=== PATIENT | male | born 1985 | race Caucasian/White ===

== ENCOUNTER 2019-12-04 17:01 | Inpatient (IN) | payer OTHER ==
[2019-12-04 18:03] VITALS: BMI 22.8
--- NOTE | 2019-12-04 18:06 | HP ---
COWS - Scale Resting Pulse: 1= [place] 81-100 Sweatin= No chills or Flushing Restless Observation: 3= Extraneous Movement Pupil Size: 0= Normal to Room Light Bone or Joint Aches: 1= Mild Discomfort Runny Nose/ Eye Tearin= Runny Nose/Eyes GI Upset > 30mins: 1= Stomach Cramp Tremor Observation: 0= None Yawning Observation: 1= 1-2x During Session Anxiety or Irritability: 1=Feels Anxious/Irritable Goose Flesh Skin: 0=Smooth Skin COWS Score: 10 CIWA Score - Admission Criteria OASAS Guidelines: Admission for Medically Managed Detox: Requires at least one of the followin. CIWA greater than 12 2. Seizures within the past 24 hours 3. Delirium tremens within the past 24 hours 4. Hallucinations within the past 24 hours 5. Acute intervention needed for co occurring medical disorder 6. Acute intervention needed for co occurring psychiatric disorder 7. Severe withdrawal that cannot be handled at a lower level of care (continued vomiting, continued diarrhea, abnormal vital signs) requiring intravenous medication and/or fluids 8. Admission ROS S - HPI Allergies/Adverse Reactions: Allergies Allergy/AdvReac Type Severity Reaction Status Date / Time shellfish derived Allergy Verified 12/04/19 18:05 History of Present Illness: 34 y.o. male requesting detox from heroin use, rpeorts first age of use 20 , longest sobriety 4 years [id number] while in residential programand then NA , relapsed , current use 7-8 bags daily , OD in the past , IV use in [facility] - denies program participation , claims last Monday he bought illicit Methadone 70 mg fentanyl - denies benzo - denies use denies other illicits or etoh tobacco : 03/23 ppd PMHX : asthma, hep C s/p tx 2016 Ribovirin PSHx : R hand Vth MC frx , left IVth finger frx s/p slip and fall PSych : bipolar II dx age 17 , depression, anxiety not on psych meds x 5 years , denies current SI / HI Exam Limitations: No Limitations - Review of Systems Constitutional: No Symptoms Reported EENT: reports: Nose Congestion, Other (myopia) Respiratory: reports: No Symptoms reported Cardiac: reports: No Symptoms Reported GI: reports: See HPI, Constipated, Abdominal cramping : reports: No Symptoms Reported Musculoskeletal: reports: Muscle Pain Integumentary: reports: See HPI Neuro: reports: No Symptoms reported Endocrine: reports: No Symptoms Reported Hematology: reports: No Symptoms Reported Psychiatric: reports: Agitated, Anxious, Disorientated Patient History - Smoking Cessation Smoking history: Current every day smoker Have you smoked in the past 12 months: Yes Initiated information on smoking cessation: Yes 'Breaking Loose' booklet given: 12/04/19 - Substances abused Heroin Substance route: Inhalation Frequency: Daily Amount used: 8 bags Age of first use: 20 Date of last use: 12/04/19 Admission Physical Exam BHS - Vital Signs Vital Signs: Vital Signs - 24 hr 12/04/19 17:56 Temperature 97.2 F L Pulse Rate 100 H Respiratory 20 Rate Blood Pressure 120/75 - Physical General Appearance: Yes: Moderate Distress, Anxious HEENTM: Yes: EOMI, Hearing grossly Normal, Normocephalic, Normal Voice, Nasal Congestion Respiratory: Yes: Chest Non-Tender, Lungs Clear, Normal Breath Sounds, No Respiratory Distress, No Accessory Muscle Use Neck: Yes: No masses,lesions,Nodules, Trachea in good position Cardiology: Yes: Regular Rhythm, Regular Rate, S1, S2, Tachycardia Abdominal: Yes: Non Tender, Soft Back: Yes: Normal Inspection Musculoskeletal: Yes: Gait Steady Extremities: Yes: Non-Tender Neurological: Yes: Alert, Motor Strength 5/5, Normal Mood/Affect Integumentary: Yes: Warm, Track Weinstein (flo wrists) - Diagnostic (1) Opioid use disorder Current Visit: Yes Status: Chronic Breathalyzer - Breathalyzer Breathalyzer: 0 Urine Drug Screen - Results Drug screen NEGATIVE: No Urine drug screen results: FEN-Fentanyl, MOP-Opiates, MTD-Methadone, BZO- Benzodiazepines Inpatient Rehab Admission - Rehab Decision to Admit Inpatient rehab admission?: No
[2019-12-04] MEDS ORDERED: hydrOXYzine PAMOATE 25 MG CAPSULE (FP) PO PRN (18:19)
[2019-12-04] MEDS ORDERED: ACETAMINOPHEN 325 MG TABLET (FP) PO PRN ×2 (18:19)
[2019-12-04] MEDS ORDERED: MAGNESIUM HYDROX 2400MG/30ML ORAL SUSPENSION 30 ML CUP PO PRN (18:19)
[2019-12-04] MEDS ORDERED: MAGNESIUM CITRATE 300 ML BOTTLE PO PRN (18:19)
[2019-12-04] MEDS ORDERED: MENTHOL/PHENOL 1 EACH UD MM PRN (18:19)
[2019-12-04] MEDS ORDERED: NICOTINE POLACRILEX 2 MG GUM BUC PRN (18:19)
[2019-12-04] MEDS ORDERED: IBUPROFEN 400 MG TABLET (FP) PO PRN (18:19)
[2019-12-04] MEDS ORDERED: ONDANSETRON *ODT* 4 MG TABLET SL PRN (18:19)
[2019-12-04] MEDS ORDERED: METHOCARBAMOL 500 MG TABLET PO PRN (18:19)
[2019-12-04] MEDS ORDERED: BISMUTH SUBSALICYLATE 524 MG/30 ML UD PO PRN (18:19)
[2019-12-04] MEDS ORDERED: MAG HYDROX/AL HYDROX/SIMETH 30 ML UNIT-DOSE CUP PO PRN (18:19)
[2019-12-04] MEDS ORDERED: METHADONE HCL 5 MG TABLET (FOR DETOX USE ONLY) PO ONE (18:21)
[2019-12-04] MEDS: THIAMINE HCL 100 MG TABLET (FP) PO SCH (22:13)
[2019-12-04] MEDS: MELATONIN 5 MG TABLETS PO SCH (22:13)
--- NOTE | 2019-12-05 09:54 | EKG ---
Test Reason : Blood Pressure : / mmHG Vent. Rate : 061 BPM Atrial Rate : 061 BPM P-R Int : 134 ms QRS Dur : 082 ms QT Int : 398 ms P-R-T Axes : 056 015 017 degrees QTc Int : 400 ms NORMAL SINUS RHYTHM NORMAL ECG NO PREVIOUS ECGS AVAILABLE Confirmed by ELOISE ECHEVERRIA MD ([id number]) on 12/05/2019 9:53:51 AM Referred By: Confirmed By:ELOISE ECHEVERRIA MD
[2019-12-05] MEDS ORDERED: METHADONE HCL 10 MG TABLET (FOR DETOX USE ONLY) PO ONE (10:00)
--- NOTE | 2019-12-05 10:06 | CONSULT ---
[facility] Psychiatric Consult - Data Date of interview: 12/05/19 Admission source: Self-referred Identifying data: Mr Tay is a 34 years old male, father of a 13 years old daughter, homeless seeking detox treatment for opioid Substance Abuse History: Reports history of heroin use. Refer to addiction counselor's summary for further information Medical History: Significant for bronchial asthma, history of treatment for hepatitis C and orthosurgery for fractures(5th metatarcal right hand, 4th fingerleft hand). Smokes 5 cigarettes daily Psychiatric History: This is patient's first psychiatric admission to this facility. He reports that his first psychiaric contact occured at age 17 while in a residential treatment at [facility] in [place], [place]. He said that he was diagnoed with Bipolar II Disorder and started on Seroquel and Prozac. Reports that he has been receiving outpatient psychiatric treatment on & off since. Reports that he has not been in outpatient treament for the past 5 years and has been off medications for that time period as well. His most recent OPD care was at [facility] in [place], [place]. Denies previous psychiatric hospitalization or suicidal attempt. At present, denies experiencing psychotic, manic or depressive symptoms. However, reports feeling anxious and sleeping poorly Physical/Sexual Abuse/Trauma History: Denies history of abuse s a child or DV relationship Mental Status Exam - Mental Status Exam Alert and Oriented to: Time, Place, Person Cognitive Function: Fair Patient Appearance: Disheveled Mood: Anxious Affect: Appropriate Patient Behavior: Cooperative Speech Pattern: Clear Voice Loudness: Normal Thought Process: Intact, Goal Oriented Thought Disorder: Not Present Hallucinations: Denies Suicidal Ideation: Denies Homicidal Ideation: Denies Insight/Judgement: Poor Sleep: Poorly Appetite: Fair Muscle strength/Tone: Normal Gait/Station: Normal Psychiatric Findings - Problem List ([place] 1, 2,3) (1) Bipolar II disorder Current Visit: Yes Status: Chronic (2) Substance-induced anxiety disorder Current Visit: Yes Status: Acute (3) Substance-induced sleep disorder Current Visit: Yes Status: Acute (4) Uncomplicated opioid dependence Current Visit: Yes Status: Acute (5) Nicotine dependence Current Visit: Yes Status: Chronic (6) Bronchial asthma Current Visit: Yes Status: Chronic (7) Hepatitis C Current Visit: Yes Status: Resolved - Initial Treatment Plan Initial Treatment Plan: 1) Start Seroquel 100 mg po HS. 2) Continue inpatient detoxification
--- NOTE | 2019-12-05 10:19 | PN ---
BHS COWS - Scale Resting Pulse: 0= [place] 80 or Below Sweatin= Chills/Flushing Restless Observation: 1= Difficult to Sit Still Pupil Size: 0= Normal to Room Light Bone or Joint Aches: 1= Mild Discomfort Runny Nose/ Eye Tearin= Nasal Congestion GI Upset > 30mins: 0= None Tremor Observation of Outstretched Hands: 1= Tremor [place], Not Seen Yawning Observation: 1= 1-2x During Session Anxiety or Irritability: 1=Feels Anxious/Irritable Goose Flesh Skin: 0=Smooth Skin COWS Score: 7 BHS Progress Note (SOAP) Subjective: sweats chills interrupted sleep Objective: 12/05/19 10:19 Vital Signs Temperature 97.5 F L 12/05/19 08:12 Pulse Rate 70 12/05/19 08:12 Respiratory Rate 20 12/05/19 08:12 Blood Pressure 121/73 12/05/19 08:12 O2 Sat by Pulse Oximetry (%) 96 12/05/19 05:05 labs pending [id number] ambulating no acute distress Assessment: 12/05/19 10:19 withdrawals Plan: continue detox pending labs
[2019-12-05] MEDS: PRENATAL VITAMINS W/ FOLIC ACID TABLET (FP) PO SCH (10:42)
[2019-12-05 11:02] LABS: BLOOD UREA NITROGEN 13.2 mg/dL (7-18); CALCIUM 9.8 mg/dL (8.5-10.1); CREATININE 0.9 mg/dL (0.55-1.3); POTASSIUM 4.7 mmol/L (3.5-5.1); TOT PROT 8.3 g/dl (6.4-8.2)
[2019-12-05 11:09] LABS: HEMATOCRIT 43.4 % (35.4-49); HEMOGLOBIN 14.6 GM/dL (11.7-16.9); MCH 30.7 pg (25.7-33.7); MCHC 33.5 g/dl (32.0-35.9); MEAN CELL VOLUME 91.7 fl (80-96); MEAN PLT VOLUME 7.6 fl (7.5-11.1); PLATELET COUNT 228 K/MM3 (134-434); RBC 4.74 M/mm3 (4.00-5.60); RDW 12.8 % (11.9-15.9); WHITE BLOOD COUNT 3.3 K/mm3 (4.0-10.0)
[2019-12-05] MEDS: QUEtiapine FUMARATE 100 MG TABLET (FP) PO SCH (22:12)
[2019-12-05] MEDS: THIAMINE HCL 100 MG TABLET (FP) PO SCH (22:12)
[2019-12-05] MEDS: cloNIDine HCL 0.1 MG TABLET PO PRN (22:14)
[2019-12-05] MEDS: MELATONIN 5 MG TABLETS PO SCH (22:15)
[2019-12-06] MEDS ORDERED: METHADONE HCL 5 MG TABLET (FOR DETOX USE ONLY) PO ONE (10:00)
--- NOTE | 2019-12-06 10:01 | PN ---
S COWS - Scale Resting Pulse: 0= [place] 80 or Below Sweatin= No chills or Flushing Restless Observation: 0= Sits Still Pupil Size: 1= Pupils >than Normal Bone or Joint Aches: 1= Mild Discomfort Runny Nose/ Eye Tearin= Runny Nose/Eyes GI Upset > 30mins: 2= Nausea/Diarrhea Tremor Observation of Outstretched Hands: 2= Slight Tremor Visible Yawning Observation: 1= 1-2x During Session Anxiety or Irritability: 2=Irritable/Anxious Goose Flesh Skin: 0=Smooth Skin COWS Score: 11 [facility] Progress Note (SOAP) Subjective: alert,irritable,anxious,interrupted sleep,tremor,pain in the body and back,nausea Objective: 12/06/19 16:05 Vital Signs Temperature 99.1 F 12/06/19 12:51 Pulse Rate 83 12/06/19 12:51 Respiratory Rate 18 12/06/19 12:51 Blood Pressure 120/76 12/06/19 12:51 O2 Sat by Pulse Oximetry (%) 100 12/06/19 12:51 12/06/19 16:05 Laboratory Last Values WBC 3.3 K/mm3 (4.0-10.0) L 12/05/19 08:00 RBC 4.74 M/mm3 (4.00-5.60) 12/05/19 08:00 Hgb 14.6 GM/dL (11.7-16.9) 12/05/19 08:00 Hct 43.4 % (35.4-49) 12/05/19 08:00 MCV 91.7 fl (80-96) 12/05/19 08:00 MCH 30.7 pg (25.7-33.7) 12/05/19 08:00 MCHC 33.5 g/dl (32.0-35.9) 12/05/19 08:00 RDW 12.8 % (11.9-15.9) 12/05/19 08:00 Plt Count 228 K/MM3 (134-434) 12/05/19 08:00 MPV 7.6 fl (7.5-11.1) 12/05/19 08:00 Sodium 139 mmol/L (136-145) 12/05/19 08:00 Potassium 4.7 mmol/L (3.5-5.1) 12/05/19 08:00 Chloride 103 mmol/L (98-107) 12/05/19 08:00 Carbon Dioxide 31 mmol/L (21-32) 12/05/19 08:00 Anion Gap 5 MMOL/L (8-16) L 12/05/19 08:00 BUN 13.2 mg/dL (7-18) 12/05/19 08:00 Creatinine 0.9 mg/dL (0.55-1.3) 12/05/19 08:00 Est GFR (CKD-EPI)AfAm 130.52 12/05/19 08:00 Est GFR (CKD-EPI)NonAf 112.62 12/05/19 08:00 Random Glucose 96 mg/dL (74-106) 12/05/19 08:00 Calcium 9.8 mg/dL (8.5-10.1) 12/05/19 08:00 Total Bilirubin 1.0 mg/dL (0.2-1) 12/05/19 08:00 AST 23 U/L (15-37) 12/05/19 08:00 ALT 29 U/L (13-61) 12/05/19 08:00 Alkaline Phosphatase 75 U/L (45-117) 12/05/19 08:00 Total Protein 8.3 g/dl (6.4-8.2) H 12/05/19 08:00 Albumin 4.0 g/dl (3.4-5.0) 12/05/19 08:00 Syphilis Serology Non-reactive (NONREACTIVE) 12/05/19 08:00 COVID-19 (CLEM) Not detected (Not Detected) 12/04/19 19:00 Assessment: 12/06/19 16:06 withdrawal symptom Plan: continue detox methadone regimen,chest x ray done pending on report
[2019-12-06] MEDS: PRENATAL VITAMINS W/ FOLIC ACID TABLET (FP) PO SCH (10:24)
[2019-12-06] MEDS: cloNIDine HCL 0.1 MG TABLET PO PRN (22:19)
[2019-12-06] MEDS: MELATONIN 5 MG TABLETS PO SCH (22:19)
[2019-12-06] MEDS: THIAMINE HCL 100 MG TABLET (FP) PO SCH (22:19)
[2019-12-06] MEDS: QUEtiapine FUMARATE 100 MG TABLET (FP) PO SCH (22:19)
[2019-12-07] MEDS ORDERED: METHADONE HCL 10 MG TABLET (FOR DETOX USE ONLY) PO ONE (10:00)
[2019-12-07] MEDS: PRENATAL VITAMINS W/ FOLIC ACID TABLET (FP) PO SCH (10:11)
--- NOTE | 2019-12-07 14:09 | PN ---
BHS COWS - Scale Resting Pulse: 0= [place] 80 or Below Sweatin= No chills or Flushing Restless Observation: 0= Sits Still Pupil Size: 0= Normal to Room Light Bone or Joint Aches: 1= Mild Discomfort Runny Nose/ Eye Tearin= None GI Upset > 30mins: 0= None Tremor Observation of Outstretched Hands: 0= None Yawning Observation: 0= None Anxiety or Irritability: 1=Feels Anxious/Irritable Goose Flesh Skin: 0=Smooth Skin COWS Score: 2 BHS Progress Note (SOAP) Subjective: Complaints of mild anxiety and joint discomfort. Objective: 12/07/19 14:07 Vital Signs 12/07/19 12/07/19 09:15 12:20 Temperature 97.8 F 98.6 F Pulse Rate 52 L 74 Respiratory 19 16 Rate Blood Pressure 116/64 121/60 O2 Sat by Pulse 98 98 Oximetry (%) Laboratory Last Values WBC 3.3 K/mm3 (4.0-10.0) L 12/05/19 08:00 RBC 4.74 M/mm3 (4.00-5.60) 12/05/19 08:00 Hgb 14.6 GM/dL (11.7-16.9) 12/05/19 08:00 Hct 43.4 % (35.4-49) 12/05/19 08:00 MCV 91.7 fl (80-96) 12/05/19 08:00 MCH 30.7 pg (25.7-33.7) 12/05/19 08:00 MCHC 33.5 g/dl (32.0-35.9) 12/05/19 08:00 RDW 12.8 % (11.9-15.9) 12/05/19 08:00 Plt Count 228 K/MM3 (134-434) 12/05/19 08:00 MPV 7.6 fl (7.5-11.1) 12/05/19 08:00 Sodium 139 mmol/L (136-145) 12/05/19 08:00 Potassium 4.7 mmol/L (3.5-5.1) 12/05/19 08:00 Chloride 103 mmol/L (98-107) 12/05/19 08:00 Carbon Dioxide 31 mmol/L (21-32) 12/05/19 08:00 Anion Gap 5 MMOL/L (8-16) L 12/05/19 08:00 BUN 13.2 mg/dL (7-18) 12/05/19 08:00 Creatinine 0.9 mg/dL (0.55-1.3) 12/05/19 08:00 Est GFR (CKD-EPI)AfAm 130.52 12/05/19 08:00 Est GFR (CKD-EPI)NonAf 112.62 12/05/19 08:00 Random Glucose 96 mg/dL (74-106) 12/05/19 08:00 Calcium 9.8 mg/dL (8.5-10.1) 12/05/19 08:00 Total Bilirubin 1.0 mg/dL (0.2-1) 12/05/19 08:00 AST 23 U/L (15-37) 12/05/19 08:00 ALT 29 U/L (13-61) 12/05/19 08:00 Alkaline Phosphatase 75 U/L (45-117) 12/05/19 08:00 Total Protein 8.3 g/dl (6.4-8.2) H 12/05/19 08:00 Albumin 4.0 g/dl (3.4-5.0) 12/05/19 08:00 Syphilis Serology Non-reactive (NONREACTIVE) 12/05/19 08:00 COVID-19 (CLEM) Not detected (Not Detected) 12/04/19 19:00 Labs noted. Assessment: 12/07/19 14:07 Alert and oriented x 3, in no acute respiratory distress. Full ROM, ambulating in unit without assistance. Skin warm to touch without any lesions. Very mild withdrawal symptoms. Plan: Continue detox protocol. D/c in AM.
[2019-12-07] MEDS: QUEtiapine FUMARATE 100 MG TABLET (FP) PO SCH (22:36)
[2019-12-07] MEDS: THIAMINE HCL 100 MG TABLET (FP) PO SCH (22:36)
[2019-12-07] MEDS: MELATONIN 5 MG TABLETS PO SCH (22:36)
[2019-12-08] MEDS ORDERED: METHADONE HCL 5 MG TABLET (FOR DETOX USE ONLY) PO ONE (10:00)
[2019-12-08] MEDS: PRENATAL VITAMINS W/ FOLIC ACID TABLET (FP) PO SCH (10:14)
[2019-12-08 10:25] VITALS: BP 114/67; PULSE 74; TEMP 97.8
--- NOTE | 2019-12-08 11:54 | DS ---
[facility] Detox Discharge Summary Admission Date: 12/04/19 Discharge Date: 12/08/19 - History Present History: Opioid Dependence Additional Comments: Pt completed detox successfully and discharged safely in stable condition. Instructed to follow up with PCP within 1-2 weeks. Pertinent Past History: Asthma HCV - Physical Exam Results Vital Signs: Vital Signs Temperature 97.8 F 12/08/19 08:43 Pulse Rate 74 12/08/19 08:43 Respiratory Rate 16 12/08/19 08:43 Blood Pressure 114/67 12/08/19 08:43 O2 Sat by Pulse Oximetry (%) 99 12/08/19 08:43 Pertinent Admission Physical Exam Findings: Withdrawal sxs Laboratory Tests 12/04/19 12/05/19 12/05/19 19:00 08:00 08:00 WBC 3.3 L RBC 4.74 Hgb 14.6 Hct 43.4 MCV 91.7 MCH 30.7 MCHC 33.5 RDW 12.8 Plt Count 228 MPV 7.6 Sodium Potassium Chloride Carbon Dioxide Anion Gap BUN Creatinine Est GFR (CKD-EPI)AfAm Est GFR (CKD-EPI)NonAf Random Glucose Calcium Total Bilirubin AST ALT Alkaline Phosphatase Total Protein Albumin Syphilis Serology Non-reactive COVID-19 (CLEM) Not detected 12/05/19 08:00 WBC RBC Hgb Hct MCV MCH MCHC RDW Plt Count MPV Sodium 139 Potassium 4.7 Chloride 103 Carbon Dioxide 31 Anion Gap 5 L BUN 13.2 Creatinine 0.9 Est GFR (CKD-EPI)AfAm 130.52 Est GFR (CKD-EPI)NonAf 112.62 Random Glucose 96 Calcium 9.8 Total Bilirubin 1.0 AST 23 ALT 29 Alkaline Phosphatase 75 Total Protein 8.3 H Albumin 4.0 Syphilis Serology COVID-19 (CLEM) Labs reviewed - Treatment Hospital Course: Detox Protocol Followed, Detoxed Safely, Responded well, Discharged Condition Good - Diagnosis (1) Uncomplicated opioid dependence Current Visit: Yes Status: Acute (2) Bipolar II disorder Current Visit: Yes Status: Chronic (3) Bronchial asthma Current Visit: Yes Status: Chronic (4) Nicotine dependence Current Visit: Yes Status: Chronic (5) Hepatitis C Current Visit: Yes Status: Chronic - AMA Did Patient Leave Against Medical Advice: No (Instructed to follow up with PCP within 1-2 weeks)
== END 2019-12-08 12:45 | disposition home or self-care (01) | DRG 773 ==
LOC: YASAS 17:01 → Y6N 18:49
PROVIDERS: ADMIT Allergy & Immunology; ATTEND Allergy & Immunology
PROC: HZ2ZZZZ Detoxification Services for Substance Abuse Treatment (ICD-10-PCS; principal; 2019-12-04)
DX: F11.23 Opioid dependence with withdrawal (principal); F17.210 Nicotine dependence, cigarettes, uncomplicated; F31.81 Bipolar II disorder; F19.282 Other psychoactive substance dependence with psychoactive substance-induced sleep disorder; F19.280 Other psychoactive substance dependence with psychoactive substance-induced anxiety disorder; J45.909 Unspecified asthma, uncomplicated; Z86.19 Personal history of other infectious and parasitic diseases; Z87.81 Personal history of (healed) traumatic fracture; Z59.0 Homelessness; Z91.013 Allergy to seafood
CPT/HCPCS: 36415; 71046-TC-FY; 80053; 85027; 86780; 93005; 93010; J0735; U0003

== ENCOUNTER 2021-10-05 12:58 | Inpatient (IN) | payer OTHER ==
[2021-10-05 14:39] VITALS: BMI 21.2
[2021-10-05] MEDS ORDERED: BISMUTH SUBSALICYLATE 524 MG/30 ML PO PRN (15:30)
[2021-10-05] MEDS ORDERED: DICYCLOMINE HCL 10 MG CAPSULE PO PRN (15:30)
[2021-10-05] MEDS ORDERED: LOPERAMIDE HCL 2 MG CAPSULE PO PRN (15:30)
[2021-10-05] MEDS ORDERED: ACETAMINOPHEN 325 MG TABLET (FP) PO PRN ×2 (15:30)
[2021-10-05] MEDS ORDERED: MAG HYDROX/AL HYDROX/SIMETH 30 ML UNIT-DOSE CUP PO PRN (15:30)
[2021-10-05] MEDS ORDERED: methaDONE HCL 10 MG TABLET (FOR DETOX USE ONLY) PO ONE (15:30)
[2021-10-05] MEDS ORDERED: diazePAM 5 MG TABLET PO PRN (15:30)
[2021-10-05] MEDS ORDERED: METHOCARBAMOL 500 MG TABLET PO PRN (15:30)
[2021-10-05] MEDS ORDERED: BENZOCAINE/MENTHOL (CHLORASEPTIC ) LOZENGE MM PRN (15:30)
[2021-10-05] MEDS ORDERED: IBUPROFEN 600 MG TABLET (FP) PO PRN (15:30)
[2021-10-05] MEDS ORDERED: MAGNESIUM CITRATE 300 ML BOTTLE PO PRN (15:30)
[2021-10-05] MEDS ORDERED: MAGNESIUM HYDROX 2400MG/30ML ORAL SUSPENSION 30 ML CUP PO PRN (15:30)
[2021-10-05] MEDS ORDERED: NICOTINE 10 MG CARTRIDGE (INHALER) IH PRN (15:30)
[2021-10-05] MEDS ORDERED: IBUPROFEN 400 MG TABLET (FP) PO PRN (15:30)
[2021-10-05] MEDS ORDERED: cloNIDine HCL 0.1 MG TABLET PO PRN (15:30)
[2021-10-05] MEDS ORDERED: ONDANSETRON *ODT* 4 MG TABLET SL PRN (15:30)
[2021-10-05] MEDS: diazePAM 5 MG TABLET PO SCH ×2 (17:44→22:23)
[2021-10-05] MEDS: hydrOXYzine PAMOATE 25 MG CAPSULE (FP) PO SCH ×2 (17:44→22:23)
[2021-10-05] MEDS ORDERED: MELATONIN 5 MG TABLETS PO SCH (22:00)
[2021-10-05] MEDS ORDERED: THIAMINE HCL 100 MG TABLET (FP) PO SCH (22:00)
[2021-10-06] MEDS: diazePAM 5 MG TABLET PO SCH (05:26)
[2021-10-06] MEDS: hydrOXYzine PAMOATE 25 MG CAPSULE (FP) PO SCH (05:26)
[2021-10-06 06:47] VITALS: BP 140/100; PULSE 83; TEMP 97.7
[2021-10-06] MEDS ORDERED: PRENATAL VITAMINS W/ FOLIC ACID TABLET (FP) PO SCH (10:00)
[2021-10-06] MEDS ORDERED: NICOTINE 7 MG/24 HOURS TOPICAL PATCH TD SCH (10:00)
[2021-10-07] MEDS ORDERED: diazePAM 5 MG TABLET PO SCH (06:00)
[2021-10-07] MEDS ORDERED: methaDONE HCL 10 MG TABLET (FOR DETOX USE ONLY) PO ONE (10:00)
[2021-10-08] MEDS ORDERED: diazePAM 5 MG TABLET PO SCH (06:00)
[2021-10-09] MEDS ORDERED: diazePAM 5 MG TABLET PO ONE (06:00)
[2021-10-09] MEDS ORDERED: methaDONE HCL 10 MG TABLET (FOR DETOX USE ONLY) PO ONE (10:00)
== END 2021-10-06 07:39 | disposition left against medical advice (07) | DRG 770 ==
LOC: YASAS 12:58 → Y3N 15:39
PROVIDERS: ADMIT Allergy & Immunology; ATTEND Surgery
PROC: HZ2ZZZZ Detoxification Services for Substance Abuse Treatment (ICD-10-PCS; principal; 2021-10-05)
DX: F11.23 Opioid dependence with withdrawal (principal); F13.20 Sedative, hypnotic or anxiolytic dependence, uncomplicated; F17.210 Nicotine dependence, cigarettes, uncomplicated; F19.280 Other psychoactive substance dependence with psychoactive substance-induced anxiety disorder; F31.81 Bipolar II disorder; F41.9 Anxiety disorder, unspecified; J45.909 Unspecified asthma, uncomplicated; Z86.19 Personal history of other infectious and parasitic diseases
CPT/HCPCS: C9803-CS; J0735; U0003; U0005

== ENCOUNTER 2022-06-24 12:46 | Inpatient (IN) | payer OTHER ==
[2022-06-24 13:50] VITALS: BMI 23.1
[2022-06-24] MEDS ORDERED: ALBUTEROL SO4 HFA INHALER IH PRN (14:23)
[2022-06-24] MEDS ORDERED: ACETAMINOPHEN 325 MG TABLET (FP) PO PRN (14:27)
[2022-06-24] MEDS ORDERED: MAGNESIUM HYDROX 2400MG/30ML ORAL SUSPENSION 30 ML CUP PO PRN (14:27)
[2022-06-24] MEDS ORDERED: METHOCARBAMOL 500 MG TABLET PO PRN (14:27)
[2022-06-24] MEDS ORDERED: POLYETHYLENE GLYCOL (HEALTHYLAX) 3350 17 GM PACKET PO PRN (14:27)
[2022-06-24] MEDS ORDERED: LOPERAMIDE HCL 2 MG CAPSULE PO PRN (14:27)
[2022-06-24] MEDS ORDERED: BENZONATATE 200 MG CAPSULE PO PRN (14:27)
[2022-06-24] MEDS ORDERED: NICOTINE 10 MG CARTRIDGE (INHALER) IH PRN (14:27)
[2022-06-24] MEDS ORDERED: hydrOXYzine PAMOATE 25 MG CAPSULE (FP) PO PRN (14:27)
[2022-06-24] MEDS ORDERED: P-EPHED 60MG/TRIPROLIDI 2.5MG TABLET PO PRN (14:27)
[2022-06-24] MEDS ORDERED: DICYCLOMINE HCL 10 MG CAPSULE PO PRN (14:27)
[2022-06-24] MEDS ORDERED: NALOXONE HCL 0.4 MG/ML VIAL IM PRN (14:27)
[2022-06-24] MEDS ORDERED: ONDANSETRON *ODT* 4 MG TABLET SL PRN (14:27)
[2022-06-24] MEDS ORDERED: MELATONIN 5 MG TABLETS PO PRN (14:27)
[2022-06-24] MEDS ORDERED: BENZOCAINE/MENTHOL (CHLORASEPTIC ) LOZENGE MM PRN (14:27)
[2022-06-24] MEDS ORDERED: IBUPROFEN 400 MG TABLET (FP) PO PRN (14:27)
[2022-06-24] MEDS ORDERED: NALOXONE HCL (KLOXXADO) 8 MG SPRAY NS PRN (14:27)
[2022-06-24] MEDS ORDERED: NICOTINE POLACRILEX 2 MG GUM BUC PRN (14:27)
[2022-06-24] MEDS ORDERED: guaiFENesin 600 MG TABLET.ER (FP) PO PRN (14:27)
[2022-06-24] MEDS ORDERED: BISMUTH SUBSALICYLATE 524 MG/30 ML PO PRN (14:27)
[2022-06-24] MEDS ORDERED: MAG HYDROX/AL HYDROX/SIMETH 30 ML UNIT-DOSE CUP PO PRN (14:27)
[2022-06-24] MEDS ORDERED: IBUPROFEN 600 MG TABLET (FP) PO PRN (14:27)
[2022-06-24] MEDS ORDERED: cloNIDine HCL 0.1 MG TABLET PO PRN (20:07)
[2022-06-24] MEDS ORDERED: methaDONE HCL 10 MG TABLET (FOR DETOX USE ONLY) PO ONE (20:15)
[2022-06-24] MEDS ORDERED: THIAMINE HCL 100 MG TABLET (FP) PO SCH (22:00)
[2022-06-25] MEDS ORDERED: PRENATAL VITAMINS W/ FOLIC ACID TABLET (FP) PO SCH (10:00)
[2022-06-25 10:53] LABS: ALBUMIN 3.2 g/dl (3.4-5.0); BLOOD UREA NITROGEN 10.7 mg/dL (7-18); CALCIUM 8.7 mg/dL (8.5-10.1)
[2022-06-25 10:56] LABS: CREATININE 0.8 mg/dL (0.55-1.3)
[2022-06-25 10:58] LABS: BILIRUBIN,TOTAL 0.5 mg/dL (0.2-1)
[2022-06-25 11:03] LABS: HEMATOCRIT 36.7 % (35.4-49); MCH 30.9 pg (25.7-33.7); MCHC 35.6 g/dl (32.0-35.9); MEAN CELL VOLUME 86.9 fl (80-96); MEAN PLT VOLUME 7.2 fl (7.5-11.1); PLATELET COUNT 231 10^3/uL (134-434); RBC 4.22 M/mm3 (4.00-5.60); RDW 13.6 % (11.9-15.9)
[2022-06-25 13:18] VITALS: PULSE 72
[2022-06-25 18:05] VITALS: BP 139/87; RESP 16; TEMP 97.7
[2022-06-26] MEDS ORDERED: methaDONE HCL 10 MG TABLET (FOR DETOX USE ONLY) PO ONE (10:00)
[2022-06-28] MEDS ORDERED: methaDONE HCL 10 MG TABLET (FOR DETOX USE ONLY) PO ONE (10:00)
== END 2022-06-25 17:11 | disposition left against medical advice (07) | DRG 770 ==
LOC: YASAS 12:46 → Y6N 15:26
PROVIDERS: ADMIT Allergy & Immunology; ATTEND Surgery
PROC: HZ2ZZZZ Detoxification Services for Substance Abuse Treatment (ICD-10-PCS; principal; 2022-06-24)
DX: F11.23 Opioid dependence with withdrawal (principal); F17.210 Nicotine dependence, cigarettes, uncomplicated; F31.81 Bipolar II disorder; J45.909 Unspecified asthma, uncomplicated; Z86.19 Personal history of other infectious and parasitic diseases; Z56.0 Unemployment, unspecified; Z59.00 Homelessness unspecified
CPT/HCPCS: 36415; 80053; 85027; 86780; 87811; C9803-CS; U0003; U0005

== ENCOUNTER 2022-08-22 12:49 | Inpatient (IN) | payer OTHER ==
[2022-08-22 13:37] VITALS: BMI 22.8
[2022-08-22] MEDS ORDERED: COLLOIDAL OATMEAL 1 BAR EACH TP PRN (15:20)
[2022-08-22] MEDS ORDERED: NALOXONE HCL 0.4 MG/ML VIAL IM PRN (15:20)
[2022-08-22] MEDS ORDERED: ONDANSETRON *ODT* 4 MG TABLET SL PRN (15:20)
[2022-08-22] MEDS ORDERED: guaiFENesin 600 MG TABLET.ER (FP) PO PRN (15:20)
[2022-08-22] MEDS ORDERED: hydrOXYzine PAMOATE 25 MG CAPSULE (FP) PO PRN (15:20)
[2022-08-22] MEDS ORDERED: IBUPROFEN 400 MG TABLET (FP) PO PRN (15:20)
[2022-08-22] MEDS ORDERED: BENZONATATE 200 MG CAPSULE PO PRN (15:20)
[2022-08-22] MEDS ORDERED: MAGNESIUM HYDROX 2400MG/30ML ORAL SUSPENSION 30 ML CUP PO PRN (15:20)
[2022-08-22] MEDS ORDERED: NALOXONE HCL (KLOXXADO) 8 MG SPRAY NS PRN (15:20)
[2022-08-22] MEDS ORDERED: NICOTINE 10 MG CARTRIDGE (INHALER) IH PRN (15:20)
[2022-08-22] MEDS ORDERED: DICYCLOMINE HCL 10 MG CAPSULE PO PRN (15:20)
[2022-08-22] MEDS ORDERED: BISMUTH SUBSALICYLATE 262 MG/15 ML BTL PO PRN (15:20)
[2022-08-22] MEDS ORDERED: methaDONE HCL 10 MG TABLET (FOR DETOX USE ONLY) PO ONE (15:20)
[2022-08-22] MEDS ORDERED: MAG HYDROX/AL HYDROX/SIMETH 30 ML UNIT-DOSE CUP PO PRN (15:20)
[2022-08-22] MEDS ORDERED: LOPERAMIDE HCL 2 MG CAPSULE PO PRN (15:20)
[2022-08-22] MEDS ORDERED: BENZOCAINE/MENTHOL (CHLORASEPTIC ) LOZENGE MM PRN (15:20)
[2022-08-22] MEDS ORDERED: cloNIDine HCL 0.1 MG TABLET PO PRN (15:20)
[2022-08-22] MEDS ORDERED: METHOCARBAMOL 500 MG TABLET PO PRN (15:20)
[2022-08-22] MEDS ORDERED: AMMONIUM LACTATE 12% LOTION 225 GM BOTTLE TP PRN (15:20)
[2022-08-22] MEDS ORDERED: POLYETHYLENE GLYCOL (HEALTHYLAX) 3350 17 GM PACKET PO PRN (15:20)
[2022-08-22] MEDS ORDERED: ACETAMINOPHEN 325 MG TABLET (FP) PO PRN (15:20)
[2022-08-22] MEDS ORDERED: IBUPROFEN 600 MG TABLET (FP) PO PRN (15:20)
[2022-08-22] MEDS ORDERED: ALBUTEROL SO4 HFA INHALER IH PRN (15:27)
[2022-08-22] MEDS ORDERED: NICOTINE 14 MG/24 HOURS TOPICAL PATCH TD SCH (15:30)
[2022-08-22] MEDS ORDERED: methaDONE HCL 10 MG TABLET (FOR DETOX USE ONLY) ONE (16:24)
[2022-08-22] MEDS ORDERED: NICOTINE 14 MG/24 HOURS TOPICAL PATCH TD ONE (16:25)
[2022-08-22] MEDS: NICOTINE POLACRILEX 2 MG GUM BUC PRN ×2 (18:15→20:53)
[2022-08-22 21:20] VITALS: TEMP 98.6
[2022-08-22] MEDS ORDERED: THIAMINE HCL 100 MG TABLET (FP) PO SCH (22:00)
[2022-08-22] MEDS ORDERED: MELATONIN 5 MG TABLETS PO SCH (22:00)
[2022-08-23 06:23] VITALS: BP 129/78; PULSE 56; RESP 16
[2022-08-23] MEDS ORDERED: PRENATAL VITAMINS W/ FOLIC ACID TABLET (FP) PO SCH (10:00)
[2022-08-24] MEDS ORDERED: methaDONE HCL 10 MG TABLET (FOR DETOX USE ONLY) PO ONE (10:00)
[2022-08-26] MEDS ORDERED: methaDONE HCL 10 MG TABLET (FOR DETOX USE ONLY) PO ONE (10:00)
== END 2022-08-23 06:28 | disposition home or self-care (01) | DRG 773 ==
LOC: YASAS 12:49 → Y6N 15:23
PROVIDERS: ADMIT Allergy & Immunology; ATTEND Surgery
PROC: HZ2ZZZZ Detoxification Services for Substance Abuse Treatment (ICD-10-PCS; principal; 2022-08-22)
DX: F11.23 Opioid dependence with withdrawal (principal); F17.210 Nicotine dependence, cigarettes, uncomplicated; F31.9 Bipolar disorder, unspecified; F41.8 Other specified anxiety disorders; G47.00 Insomnia, unspecified; J45.909 Unspecified asthma, uncomplicated; B18.2 Chronic viral hepatitis C
CPT/HCPCS: 87635